=== PATIENT | male | born 1965 | race Caucasian/White ===

== ENCOUNTER → 2016-11-30 | Outpatient (CLI) | payer BC ==
[2016-11-27 11:29] VITALS: BP 149/98
[~2016-11-30] MED LIST: ESOM40CA PO; GUAI-42 PO; LOSA100T6 PO; OMEG500C PO
--- NOTE | 2016-11-30 15:08 | CARD ---
APPROVED REPORT EXAM: Two-dimensional and M-mode echocardiogram with Doppler and color Doppler. Other Information Quality : Average Rhythm : NSR INDICATION Palpitations 2D DIMENSIONS RVDd3.1 (2.9-3.5cm)Left Atrium(2D)3.4 (1.6-4.0cm) IVSd1.1 (0.7-1.1cm)Aortic Root(2D)3.3 (2.0-3.7cm) LVDd5.0 (3.9-5.9cm)LVOT Diameter2.0 (1.8-2.4cm) PWd1.1 (0.7-1.1cm)LVDs2.9 (2.5-4.0cm) FS (%) 41.9 %SV85.1 ml LVEF(%)70.0 (>50%) Aortic Valve AoV Peak Ziyad.170.1cm/sAoV VTI29.9cm AO Peak GR.11.6mmHgLVOT Peak Ziyad.108.3cm/s LVOT VTI 20.78cmAO Mean GR.6mmHg ANNABELLE (VMAX)1.16sc6JEO (VTI)2.10cm2 Mitral Valve MV E Bgnmxvjk49.4cm/sMV DECEL ILBQ393wd MV A Fkpsfojg56.2cm/sMV E Mean Gr.1mmHg MV HWT43yhV/A Ratio1.0 MV A Jiexkblk627jeWSS (PHT)5.23cm2 TDI E/Lateral E'4.7E/Medial E'6.4 Pulmonary Valve PV Peak Mmndtcpn040.6cm/sPV Peak Grad.12mmHg RVOT VTI22.7cm Tricuspid Valve TR P. Rspmscvm644hf/sRAP EQTWKTND5cnWd TR Peak Gr.59ynMvWHRX31osHf Pulmonary Vein S1 Hqfsmkwr41.6cm/sD2 Gfeiwvod03.2cm/s LEFT VENTRICLE The left ventricle is normal size. There is normal left ventricular wall thickness. Left ventricle sy stolic function is normal. The Ejection Fraction is 70%. There is normal LV segmental wall motion. Th e left ventricular diastolic function and filling is normal for age. RIGHT VENTRICLE The right ventricle is normal size. The right ventricular systolic function is normal. ATRIA The left atrium size is normal. The right atrium size is normal. The interatrial septum is intact wit h no evidence for an atrial septal defect or patent foramen ovale as noted on 2-D or Doppler imaging. AORTIC VALVE The aortic valve is normal in structure and function. The aortic valve is trileaflet. Doppler and Col or Flow revealed no significant aortic regurgitation. There is no significant aortic valvular stenosi s. MITRAL VALVE The mitral valve is normal in structure There is no mitral valve stenosis. Doppler and Color Flow rev ealed trace mitral regurgitation. TRICUSPID VALVE The tricuspid valve is normal in structure Doppler and Color Flow revealed mild tricuspid regurgitati on. The PA pressure was estimated at 48 mmHg. There is no tricuspid valve stenosis. PULMONIC VALVE The pulmonic valve is not well visualized. Doppler and Color Flow revealed no pulmonic valvular regur gitation. There is no pulmonic valvular stenosis. GREAT VESSELS The aortic root is normal in size. Normal pulmonary venous flow (Doppler). The IVC is normal in size and collapses >50% with inspiration. PERICARDIAL EFFUSION There is no evidence of significant pericardial effusion. Critical Notification Critical Value: No <Conclusion> Left ventricle systolic function is normal. The Ejection Fraction is 70%. The left atrium size is normal. The right atrium size is normal. The aortic valve is normal in structure and function. The aortic valve is trileaflet. Doppler and Color Flow revealed trace mitral regurgitation. Doppler and Color Flow revealed mild tricuspid regurgitation. The PA pressure was estimated at 48 mmHg. The pulmonic valve is not well visualized. There is no evidence of significant pericardial effusion.
== END | disposition home or self-care (01) ==
LOC: ECHO 13:28
PROVIDERS: ATTEND Physician Assistant Medical
DX: I34.0 Nonrheumatic mitral (valve) insufficiency (principal); I07.1 Rheumatic tricuspid insufficiency
CPT/HCPCS: 93306

== ENCOUNTER → 2016-12-19 | Outpatient (CLI) | payer BC ==
[2016-11-27 11:29] VITALS: BP 149/98
[~2016-12-19] VITALS: Ht 180.3 cm; Wt 94.3 kg
[~2016-12-19] MED LIST changes: +SINCALIDE 1.89 MCG in IV NORMAL SALINE 50ML 30 ML IV ONE
--- NOTE | 2016-12-19 14:28 | RAD ---
Indication: Upper gastric pain. The patient was administered 5.5 mCi of technetium 99m Choletec and imaging over the abdomen was performed. The patient was also given 1.9 mcg of CCK and gallbladder ejection fraction was calculated. There is homogeneous uptake of activity by the liver with prompt excretion into the gallbladder and common duct. Normal passage of activity into the small bowel is seen. Gallbladder ejection fraction is normal at 74%. Impression: Normal HIDA scan and gallbladder ejection fraction.
== END | disposition home or self-care (01) ==
LOC: NM 11:18
PROVIDERS: ATTEND Internal Medicine Gastroenterology
DX: R10.13 Epigastric pain (principal)
CPT/HCPCS: 78226; 96374; A9537; J2805

== ENCOUNTER → 2016-12-25 | Day surgery (SDC) | payer BC ==
[~2016-12-25] MED LIST changes: +FENTANYL PF 100 MCG/2 ML VIAL. IV PRN; +HYDROMORPHONE 2 MG/ML VIAL. IV PRN; +IV RINGERS,LACTATED 1000ML 1,000 ML IV SCH; +LIDOCAINE 1% 1 ML SYRINGE. ID PRN; +LIDOCAINE 2% PF Vial for OR 5 ML VIAL. ONE; +MORPHINE SULFATE 2 MG/ML DISP.SYRIN. IV PRN; +ONDANSETRON PF 4 MG/2 ML VIAL. IV PRN; +PROCHLORPERAZINE 10 MG/2 ML VIAL. IV PRN; +PROPOFOL 20 ML IV ONE; -SINCALIDE 1.89 MCG in IV NORMAL SALINE 50ML 30 ML IV ONE
[2016-12-25 17:10] VITALS: BP 122/70
== END ==
LOC: ENDOS 15:23
PROVIDERS: ATTEND Internal Medicine Gastroenterology
DX: K29.50 Unspecified chronic gastritis without bleeding (principal); K44.9 Diaphragmatic hernia without obstruction or gangrene; K21.9 Gastro-esophageal reflux disease without esophagitis; I10 Essential (primary) hypertension; Z80.41 Family history of malignant neoplasm of ovary; Z72.89 Other problems related to lifestyle
CPT/HCPCS: 43235; J2704